=== PATIENT | female | born 1955 | race Two or more races ===

== ENCOUNTER 2024-07-06 09:30 | Outpatient (RCR) | payer MEDICARE, SELFPAY ==
--- NOTE | 2024-06-25 10:49 | PT.ODS1RPT ---
PT OP Progress/Discharge Note Date of Service: 06/25/24 Progress Note/DC Note Progress Note/Discharge Note: Progress Note Patient Information Visit Reasons: Back surgery Service Continue Service or Discharge: Continue Service Status Subjective: Continued LBP with prolonged sitting Objective: TTP: min of L/S paraspinals B quad and HS strength: 11/21 Assessment: Pt has attended the evaluation and 02/27 sessions with slow progress with therapy goals due to continued LBP. She has improved LE strength since starting therapy to meet that goal. Plan: Continue per POC Procedure Charges Therapeutic Exercise 30 minutes: Yes
--- NOTE | 2024-07-06 15:10 | PT.ODS1RPT ---
PT OP Progress/Discharge Note Date of Service: 07/06/24 Progress Note/DC Note Progress Note/Discharge Note: Progress Note Patient Information Visit Reasons: Back surgery Service Continue Service or Discharge: Continue Service Status Subjective: The LE's may be a little stronger since starting therapy Objective: TTP: min of L/S paraspinals B quad and HS strength: 4/5 Assessment: Pt has attended the evaluation and 03/30 sessions with slow progress with therapy goals due to continued LBP. Therapy sessions focus on LE strength and she has improved LE strength since starting therapy to 4/5 meet that goal. Plan: Pt has consultation with provider and will update re: POC Procedure Charges Therapeutic Exercise 30 minutes: Yes
== END 2024-07-18 23:59 | disposition home or self-care (01) ==
LOC: CPTX 09:30
PROVIDERS: PCP Physician Assistant; Referring Provider Physician Assistant; Visit Provider Physician Assistant
DX: R53.1 Weakness (principal); R53.83 Other fatigue; Z98.1 Arthrodesis status; G62.89 Other specified polyneuropathies; E11.9 Type 2 diabetes mellitus without complications
CPT/HCPCS: 97110

== ENCOUNTER → 2024-10-02 | Outpatient (CLI) | payer OTHER, SELFPAY ==
--- NOTE | 2024-10-02 | XR_ITS ---
Examination: Lumbar spine, 5 views Technique: Lumbar spine AP, lateral, coned lateral lower lumbar spine, bilateral obliques 5 views Exam date and time: October 02, 2024 1116 hours Comparison June 22, 2024 INDICATIONS: Patient fell 6 months ago with onset low back pain beginning one month ago FINDINGS: 8 mm calcification upper right abdomen Status post left transpedicular fusion L4-L5 with satisfactory alignment Moderate disc narrowing L5-S1 No spondylolisthesis No acute lumbar fracture Minimal lumbar spondylosis Laminectomies L4, L5 IMPRESSION: Stable lumbar fusion L4-L5 Moderate disc narrowing L5-S1 No lumbar fracture
== END | disposition home or self-care (01) ==
LOC: CDIM 11:05
PROVIDERS: PCP Physician Assistant; Referring Provider Specialist; Visit Provider Specialist
DX: M48.07 Spinal stenosis, lumbosacral region (principal); M43.26 Fusion of spine, lumbar region
CPT/HCPCS: 72110

== ENCOUNTER → 2025-08-05 | Outpatient (CLI) | payer MEDICARE, SELFPAY ==
--- NOTE | 2025-08-05 15:15 | XR_ITS ---
Examination: Screening digital mammography, bilateral Computer aided detection 3-D breast Tomosynthesis, bilateral Date and time of exam: August 05, 2025, 1408 hours, compared to mammograms dating to January 16, 2022 Indication: Screening Technique: Nonmagnified MLO, CC views of the breasts to been obtained, reconstructed from 3-D Tomosynthesis images. R2 computer aided detection program utilized for evaluation of suspicious masses and/or abnormal calcifications. 3-D Tomosynthesis images obtained. Findings: Scattered areas of fibroglandular density. Breast biopsy marker upper outer right breast No suspicious masses Impression: BI-RADS category II: Benign Findings. Recommend 1 year follow-up mammogram.
== END | disposition home or self-care (01) ==
LOC: CDIM 14:32
PROVIDERS: Referring Provider Physician Assistant; Visit Provider Physician Assistant
DX: Z12.31 Encounter for screening mammogram for malignant neoplasm of breast (principal); R92.323 Mammographic fibroglandular density, bilateral breasts
CPT/HCPCS: 77063; 77067